=== PATIENT | male | born 1985 | race Caucasian/White ===

== ENCOUNTER 2020-09-15 05:20 | Emergency (ER) | payer OTHER, SELFPAY ==
[2020-09-15 05:29] VITALS: BP 123/79; PULSE 95; RESP 14; TEMP 36.4; O2SAT 97
[2020-09-15 07:10] VITALS: BP 127/87; PULSE 84; RESP 18; O2SAT 99
--- NOTE | 2020-09-15 07:12 | ED.URI ---
HPI - URI/Sore Throat General Chief Complaint: Upper Respiratory Infection Stated Complaint: Sore throat Time Seen by Provider: 09/15/20 07:09 History of Present Illness HPI Narrative: Sore throat since yesterday. Pain in the right anterior neck. Feels swollen. Hurts to swallow. No SOB, fever, chills, CP, SOB, sick contacts. Related Data Allergies Allergy/AdvReac Type Severity Reaction Status Date / Time No Known Allergies Allergy Verified 09/16/20 08:18 Review of Systems Review of Systems: All systems reviewed & are unremarkable except as noted in HPI and below Constitutional: Constitutional: Denies chills, Denies fever(s) and Denies weakness Eyes: Eyes: Reports no additional eye complaints ENT: Denies dizziness and Denies nasal congestion Cardiovascular: Cardiovascular: Denies chest pain Respiratory: Respiratory: Denies dyspnea Gastrointestinal: Gastrointestinal: Denies abdominal pain, Denies nausea and Denies vomiting Neurologic: Reports system reviewed and no additional complaints, except as documented PMFSH Family History Family History Father Hypertension Mother Cerebrovascular accident Social History Social History Smoking status: Never smoker Alcohol intake: current Gender identity (if verbalized by the patient): Male Exam Const: General: healthy appearing, no acute distress and alert Nutritional Appearance: well nourished Orientation/consciousness: patient oriented x3 HENMT: Other: Mildly enlarged right tonsil with mild erythema and 2 prominent stones. Uvula midline. Otherwise normal exam Eyes: Pupils: Equal, round and reactive pupils present Neck: Neck: normal visual inspection and no lymphadenopathy Resp: Effort & Inspection: normal respiratory effort Auscultation: clear to auscultation bilaterally Cardio: Rate: regular rate Rhythm: regular rhythm Skin: General skin exam: normal color Neuro: General: patient oriented x3, moves all extremities, no focal motor deficits and CN's II-XI intact bilaterally Speech: normal speech Course Vital Signs Vital signs: Vital Signs Temperature 36.4 C 09/15/20 05:29 Pulse Rate 95 09/15/20 05:29 Respiratory Rate 14 09/15/20 05:29 Blood Pressure 123/79 09/15/20 05:29 Pulse Oximetry 97 05/06/21 05:29 Temperature 36.6 C 09/15/20 07:41 Pulse Rate 76 09/15/20 08:30 Respiratory Rate 18 09/15/20 08:30 Blood Pressure 136/93 H 09/15/20 08:30 Pulse Oximetry 100 09/15/20 08:30 Procedures Abscess I/D oral: Local Anesthetic: other anesthetic (cetocain) Technique: other (tongu blade and curette ) Amount of fluid expressed (mL): 1 Packing used?: none I&D Results: Other (stone and purulent fluid) MDM - URI/Sore Throat MDM Narrative Medical decision making narrative: Reports mild improvement after extraction. He is a bit erythematous. Probably no true infection, but may have had some bacterial overgrowth due to blockage. I will prescribe a short course of antibiotics. Medical Records Attestation: I reviewed the patient's medical records. Lab Data Attestation: I reviewed the patient's lab results. Labs: Strep Screen Presumptive Negative *(Reference Range: Negative)* Discharge Plan Discharge Clinical Impression: Tonsil stone Patient Disposition: Home, Self-Care Condition: Stable Instructions: Antibiotic Form, Tonsillitis (ED) Prescriptions: New amoxicillin-pot clavulanate [Augmentin] 875-125 mg tablet 1 tablet PO Q12H Qty: 10 RF: 0 No Action prednisone 10 mg tablet 30 mg PO DAILY 5 Days Qty: 15 RF: 0 Follow-up/Referrals: Heath Hines MD [Primary Care Provider] -
[2020-09-15 07:41] VITALS: BP 115/66; PULSE 84; RESP 18; TEMP 36.6; O2SAT 100
[2020-09-15] MEDS: AMOXICILLIN/CLAVULANATE K 875-125 MG TAB 1 TABLET PO (08:29)
[2020-09-15] MEDS: DEXAMETHASONE SOD PHOS INJ 4 MG/ML VIAL 10 MG IM (08:29)
[2020-09-15 08:30] VITALS: BP 136/93; PULSE 76; RESP 18; O2SAT 100
[2020-09-15] MEDS: KETOROLAC (*BKC) 60 MG/2 ML VIAL IM (08:30)
== END 2020-09-15 08:57 | disposition home or self-care (01) ==
PROVIDERS: Emergency Provider Emergency Medicine; PCP Family Medicine
DX: J35.8 Other chronic diseases of tonsils and adenoids (principal)
CPT/HCPCS: 42700; 42809; 87081; 87880; 99283; A9270; J1100; J1885